=== PATIENT | female | born 1985 | race Caucasian/White ===

== ENCOUNTER → 2017-05-24 | Outpatient (CLI) | payer BC ==
--- NOTE | 2017-05-27 09:53 | PCVCIMAG ---
APPROVED REPORT Exam: Stress Echocardiogram Indication: Palpitations , Chest pain Patient Location: Echo lab Stress Nurse: Magali Duenas RN Status: routine Ht: 5 ft 4 in HR: 97 bpm BP: 106/80 mmHg Rhythm: NSR Medical History Cardiac Risk Factors: none Previous Cardiac Procedures: none Pretest Chest Pain Characteristics: No chest pain Exercise History: Physically active Procedure The patient underwent an Exercise Stress Test using the Ethan Protocol. Blood pressure, heart rate, and EKG were monitored. An Echocardiogram was performed by wireless technician in four stages in quad fashion. At peak stress, four selected images were obtained and placed side by side with resting images for comparison. Stress Test Details Stress Test: Exercise stress testing was performed using a Ethan protocol. HR Resting HR: 97 bpmMax Heart Rate (APMHR): 190 bpm Max HR Achieved: 184 bpmTarget HR (85% APMHR): 161 bpm % of APMHR: 96 Recovery HR: 115 bpm HR response to stress: Normal HR response to stress BP Resting BP: 106/80 mmHg Max BP: 140/74 mmHg Recovery BP: 110/70 mmHg ECG Resting ECG: Sinus Rhythm with occasional tachycardia Stress ECG: Sinus Rhythm ST Change: Normal Maximum ST Deviation: 0.20 mm Arrhythmia: None Recovery ECG: Sinus Rhythm Recovery ST Change: Normal Recovery ST Deviation: 0.45 mm Recovery Arrhythmia: None Clinical Reason for Termination: Maximal effort Stress Symptoms: none Exercise duration: 12 min 52 sec Highest Stage Achieved: Stage 5: 5.0 mph at 18% grade. Exercise capacity: 16.6 METs Overall Exercise Capacity for Age: Good Angina Score: None No complications. Stress ECG Conclusion The patient exercised according to the ETHAN for 12:52 minutes, achieving a work level of Max. METS:16.6 . The resting heart rate of 74 bpm vidya to a maximal heart rate of 190 bpm. This value represents 100 % of the maximal, age-predicted heart rate. The resting blood pressure of106/80 mmHg, vidya to a maximum blood pressure of 140/74 mmHg. The exercise test was stopped due to fatigue. Malik Treadmill Score is 11.0 which is Low risk. Pre-Stress Echo The resting Echocardiogram showed normal left ventricular contractility with an estimated Ejection Fraction of about 55-60%. Normal wall motion in all segments on baseline images. Post-Stress Echo The stress Echocardiogram showed normal left ventricular contractility with an estimated Ejection Fraction of about 65-70%. Normal augmentation of wall motion in all segments on post stress images. Clinical Normal augmentation of myocardial wall segments using a 17 segment model. No clinical or ECG evidence for ischemia. Conclusion Clinical Response: Non-ischemic Exercise Capacity: Superior Stress ECG Response: Non-ischemic Stress Echo Images: Non-ischemic Normal stress echocardiogram with maximal exercise stress. No clinical, EKG or echocardiographic evidence for ischemia. No echocardiographic evidence for exercise induced ischemia. No prior study available for comparison. <Conclusion> Normal stress echocardiogram with maximal exercise stress. No clinical, EKG or echocardiographic evidence for ischemia. No echocardiographic evidence for exercise induced ischemia.
== END | disposition home or self-care (01) ==
LOC: PCVCIMAG 11:35
PROVIDERS: ATTEND Internal Medicine
DX: R00.0 Tachycardia, unspecified (principal); R00.2 Palpitations; E78.5 Hyperlipidemia, unspecified; F41.9 Anxiety disorder, unspecified
CPT/HCPCS: 93325; 93351